=== PATIENT | female | born 1935 | race Caucasian/White ===

== ENCOUNTER 2018-02-19 05:23 | Inpatient (IN) ==
[2018-02-19] MEDS ORDERED: Chlorhexidine Gluconate 2% 1 Pack (2 Cloths) TOPICAL ONE (05:42)
[2018-02-19] MEDS ORDERED: Metoprolol Tartrate 25 MG Tablet PO ONE (05:42)
[2018-02-19] MEDS ORDERED: Sodium Chlor 0.9% Inj 73.07 ML, Ropivacaine 0.5% PF Inj 24.63 ML, Ketorolac Inj 30 MG, ... P-ARTICULR SCH ×5 (05:45)
[2018-02-19] MEDS ORDERED: Sodium Chlor 0.9% Inj 500 ML IV.SIG SCH (06:00)
[2018-02-19] MEDS ORDERED: ceFAZolin 2 GM Premix Inj 2 GM/50 ML PIGGYBACK IV.SIG SCH (06:00)
[2018-02-19] MEDS ORDERED: Tranexamic Acid Inj 790 MG in Sodium Chlor 0.9% Inj 100 ML IV.SIG SCH ×3 (06:00→12:00)
[2018-02-19] MEDS ORDERED: Dexamethasone Inj 20 MG/5 ML Vial IV.PUSH SCH (06:00)
[2018-02-19] MEDS ORDERED: Vancomycin Inj 1,000 MG in Sodium Chlor 0.9% Inj 250 ML IV.SIG SCH (06:00)
[2018-02-19] MEDS ORDERED: Bupivacaine/Dextrose 0.75% Inj 2 ML Ampul ONE (07:43)
[2018-02-19] MEDS ORDERED: Budesonide-Formoterol 160/4.5 MCG 6 GM Inhaler INH PRN (09:59)
[2018-02-19] MEDS ORDERED: Bisacodyl 10 MG Supp RECTAL PRN (10:01)
[2018-02-19] MEDS ORDERED: Aluminum/Magnesium/Simethacone Susp 30 ML UDC PO PRN (10:01)
[2018-02-19] MEDS ORDERED: Morphine Sulfate Inj 2 MG/ML Vial IV.PUSH PRN (10:01)
[2018-02-19] MEDS ORDERED: Post-op Orders (for Pharmacy) OTHER STA (10:01)
--- NOTE | 2018-02-19 10:05 | P.OP ---
- Preoperative Diagnosis (1) Osteoarthritis of left knee - Postoperative Diagnosis (1) Osteoarthritis of left knee Date of procedure: 02/19/18 Procedure: Left total knee arthroplasty Anesthesia: regional, spinal Surgeon: Manas Lieberman MD Pigs Feet Cleaner: ALESHIA Bush The surgical procedure was assisted by my Advanced Registered Nurse Practitioner. My ANIMAL ASSISTANT presence was necessary throughout this case for the manipulation and positioning of the surgical extremity. My ANIMAL ASSISTANT was assisting me throughout the duration of this procedure. The skill set of an Advance Registered Nurse Practitioner was medically necessary to complete this procedure. During the surgical case, the surgical instruments inspector was working at the back table and the Advance Registered Nurse Practitioner was directly assisting me. Operation and Findings: IMPLANTS: DePuy Attune: Patella: size 32. Femur, posterior stabilized size 6 narrow. Tibia, rotating platform size 4. Tibial insert, rotating platform, posterior stabilized size 7 mm thickness. ESTIMATED BLOOD LOSS: 150 cc TOURNIQUET TIME: 33 minutes at 250 mmHg pressure. JUSTIFICATION FOR PROCEDURE: The patient has end-stage osteoarthritis to the knee. There is an attached conservative measures pathway form in the chart that describes the nonoperative measures that were undertaken prior to consideration of surgical management. The patient understood the risks and benefits of surgical management. See my office notes for further details PROCEDURE: The patient was brought back to the operative theatre. Adequate anesthesia was obtained. The patient received intravenous vancomycin and Ancef. The lower extremity was prepped and draped in the usual sterile fashion.The leg was exsanguinated, the tourniquet was raised. A standard anterior incision was performed followed by medial parapatellar arthrotomy was performed. End-stage arthritis was identified. Osteotomy of the patella was performed. We drilled holes for the patella. We trialed the patella component. We placed an intramedullary guide into the distal femur. We ultimately resected 13 mm off of the distal femur in 5 degrees of valgus. The remnants of the ACL and PCL were resected. Osteotomy of the proximal tibia was performed, resecting 6 mm off of the medial side. This was done with 3 degrees of posterior slope using an extramedullary guide. The distal end of the guide was placed in the mid aspect of the ankle. The femur was sized, and four chamfer cuts were completed in 3 of external rotation. We then cut the central box in the distal femur to replace the PCL. We resected the remnants of the menisci and removed osteophytes off of the femur and tibia. We then trialed the knee. We punched the tibia for the keel, and then used standard technique to cement in components. Excess cement was removed. We trialed the knee again and the final polyethylene thickness was chosen to provide extension to 0 degrees, and flexion of 140 degrees to gravity. The ligaments were appropriately balanced. Lateral release was necessary to obtain excellent patellofemoral tracking. The tourniquet was released and adequate hemostasis was obtained. An intra- articular injection of a ropivacaine cocktail was injected. The posterior knee was inspected for excess cement, which was removed. The final polyethylene was put into position after thorough irrigation. We then closed deep fascia with a #2 Stratafix followed by skin with 2-0 Vicryl followed by Dermabond. Postop plan is to weight-bear as tolerated. DVT prophylaxis will be performed with SCDs, SYDNEY petit, early mobilization, and Lovenox followed by aspirin.
[2018-02-19] MEDS: Sod Chloride 0.9% Inj 1,000 ML IV.CONT SCH (10:45)
--- NOTE | 2018-02-19 11:12 | XR ---
EXAM DATE: 02/19/2018 11:09 AM EDT AGE/SEX: 82 years / Female INDICATIONS: Post op left knee surgery. CLINICAL DATA: This is the patient's initial encounter. Patient reports that signs and symptoms have been present for 1 day and indicates a pain score of 0/10. MEDICAL/SURGICAL HISTORY: None. Total knee replacement, right. COMPARISON: [facility] – [place], KNEE RIGHT [facility] (1 OR 2 VWS), 05/16/2016. . FINDINGS: Patient's had a total knee arthroplasty. There is excellent alignment. There is no fracture. CONCLUSION: Total knee arthroplasty without complication. Electronically signed by: Mo Lake MD 02/19/2018 11:10 AM EDT
--- NOTE | 2018-02-19 11:48 | P.DCO ---
- Physical Therapy Physical Therapy: Gait training, Transfer training, bed to chair Knee: Total knee Left Lower Extremity Weight Bearing: Weight bearing as tolerated Left Lower Extremity Range of Motion: Active ROM - Nursing Nursing: Sourav teaching Dressing changes: Do not change dressing Additional instructions: First dressing change in the office. - Certification Need for Home Health services: I have seen patient Belia Bautista on 02/19/18. My clinical findings support the need for the requested home health care services because: Need for Home Health Services: Limited ability to care for self, High risk of falls Homebound Certification: I certify that my clinical findings support that this patient is homebound because: Homebound Certification: Post-op weakness, Unsteady gait/balance
[2018-02-19] MEDS ORDERED: Montelukast 10 MG Tablet PO SCH (18:00)
[2018-02-19] MEDS ORDERED: Zolpidem Tartrate 5 MG Tablet PO PRN (21:00)
[2018-02-19] MEDS: Multivitamin/Minerals Therapeutic Tablet PO SCH (23:24)
[2018-02-19] MEDS: Senna/Docusate Sodium 8.6/50 MG Tablet PO SCH (23:24)
[2018-02-20 00:50] VITALS: RESP 17
[2018-02-20] MEDS: Sod Chloride 0.9% Inj 1,000 ML IV.CONT SCH (03:43)
[2018-02-20 04:40] VITALS: PULSE 72; TEMP 97.6; O2SAT 98
[2018-02-20 04:52] LABS: Hematocrit 34.8 % (35.0-46.0); Hemoglobin 11.2 gm/dL (11.6-15.3)
--- NOTE | 2018-02-20 07:22 | P.PNOP ---
Subjective Interval history: The patient is resting comfortably in bed with no complaints of pain to the left knee. The patient is requesting discharge home with home health. Physical Exam Vital signs: Vital Signs 02/19/18 10:36 02/19/18 10:45 02/19/18 11:00 Temperature 97 F L Pulse Rate 55 L 52 L 51 L Respiratory Rate 19 19 24 Blood Pressure 138/78 138/72 155/75 H Pulse Oximetry 94 L 96 95 02/19/18 11:15 02/19/18 12:00 02/19/18 16:00 Temperature 97 F L 98.2 F 97.2 F L Pulse Rate 53 L 55 L 61 Respiratory Rate 24 18 18 Blood Pressure 152/85 H 197/88 H 154/83 H Pulse Oximetry 94 L 94 L 92 L 02/19/18 19:22 02/19/18 23:24 02/20/18 03:28 Temperature 97.4 F L 97.5 F L 97.6 F Pulse Rate 60 60 72 Respiratory Rate 18 17 17 Blood Pressure 140/70 130/70 130/70 Pulse Oximetry 98 97 98 Intake & Output 02/19/18 02/20/18 02/20/18 18:59 06:59 18:59 Intake Total 1465.8 / 1465.8 1380 / 1380 Output Total 700 / 700 Balance 765.8 / 765.8 1380 / 1380 Weight 79 kg 79 kg Intake: IV 1365.8 / 1365.8 900 / 900 NS Inj 1,000 ML @ 80 mls/hr IV. 800 / 800 CONT .[id number] RAI Rx#:[id number] LR 1000 mL Inj 1,000 ML @ 30 1000 / 1000 mls/hr IV.SIG .Q24H RAI Rx#: [id number] Cyklokapron Inj 790 MG In NS 215.8 / 215.8 Inj 100 ML @ 200 mls/hr IV.SIG HOLE PUNCHER STRAP RAI Rx#:[id number] Ancef 2 GM Premix Inj 2 gm In 50 / 50 50 ml @ 100 mls/hr IV.SIG HOLE PUNCHER STRAP RAI Rx#:[id number] Ancef Inj 1,000 MG In NS Inj 100 / 100 100 / 100 100 ML @ 200 mls/hr IV.SIG Q6H RAI Rx#:[id number] Oral 480 / 480 Anesthesia Amount 100 / 100 Output: Estimated Blood Loss 100 / 100 Urine Amount (Catheter) 600 / 600 Straight 600 / 600 Other: # Voids 3 5 Date of Last Bowel Movement 02/18/18 02/18/18 # Bowel Movements 0 Narrative: The patient's dressing is clean, dry, and intact. EHL/TA/G are intact. 2+ pedal pulse. The patient's calf is soft and nontender. Sensation is intact to light touch distally. - Urinary Catheter Management Straight Cath placed during this visit: yes, but has since been removed by the nurse Reason for continuing: Not indwelling catheter Insertion date: 02/19/18 Insertion time: 13:30 Removal date: 02/19/18 Removal time: 13:40 Results - Labs CBC & Chem 7: 02/20/18 03:52 Laboratory Results - last 24 hr 02/19/18 02/20/18 06:00 03:52 Hgb 11.2 L Hct 34.8 L Blood Type A Positive Blood Type Recheck Required Antibody Screen Negative - Imaging Impressions Knee X-Ray 02/19/18 10:01 CONCLUSION: Total knee arthroplasty without complication. - Procedures Left total knee arthroplasty Assessment and Plan - Problem List (1) Status post total knee replacement, left Code(s): Z96.652 - Presence of left artificial knee joint Status: Acute (2) Osteoarthritis of left knee Code(s): M17.12 - Unilateral primary osteoarthritis, left knee Status: Acute - Assessment and Plan POD #1: Left total knee arthroplasty 2 skin tears to the left lower extremity 1. Weightbearing as tolerated on left lower extremity. 2. Lovenox followed by aspirin for DVT prophylaxis. 3. Ice as needed for swelling. 4. Stable per ortho for discharge to home health today. 5. The patient will follow up with Dr. Lieberman and/or ALESHIA Diaz as previously scheduled.
[2018-02-20 07:56] VITALS: BP 142/80
[2018-02-20] MEDS ORDERED: Dexamethasone Inj 20 MG/5 ML Vial IV.PUSH ONE (08:00)
[2018-02-20] MEDS: Senna/Docusate Sodium 8.6/50 MG Tablet PO SCH (08:03)
[2018-02-20] MEDS: Multivitamin/Minerals Therapeutic Tablet PO SCH (08:03)
[2018-02-20] MEDS ORDERED: glipiZIDE 5 MG Tablet PO SCH (09:00)
[2018-02-20] MEDS ORDERED: predniSONE 5 MG Tablet PO SCH (09:00)
[2018-02-20] MEDS ORDERED: Pantoprazole Sodium 20 MG DR Tablet PO SCH (09:00)
[2018-02-20] MEDS ORDERED: Atenolol 25 MG Tablet PO SCH (09:00)
[2018-02-20] MEDS ORDERED: Enoxaparin Inj 40 MG/0.4 ML Syringe SQ SCH (10:00)
[2018-02-20] MEDS ORDERED: Montelukast 10 MG Tablet PO SCH (21:00)
--- NOTE | 2018-02-23 20:36 | P.DS ---
Date of admission: 02/19/18 05:23 Primary care physician: Itzel Baum Attending physician on discharge: Manas Lieberman Anticipated date of discharge: 02/20/18 Brief History from admission: The patient was admitted to the hospital for severe osteoarthritis of the left knee to have a left total knee arthroplasty. DS: Diagnosis - Discharge Diagnosis (1) Status post total knee replacement, left Status: Acute (2) Osteoarthritis of left knee Status: Acute DS: Summary Hospital Course: The patient was admitted to the hospital for severe osteoarthritis of the left knee to have a left total knee arthroplasty. The patient's surgery went well with no complication. The patient is on a diabetic diet. The patient's DVT prophylaxis includes use of [Lovenox followed by aspirin]. The patient is weightbearing as tolerated. The patient was discharged [home with home health] and will follow up in the office with Dr. Lieberman and/or ALESHIA Diaz as previously scheduled. - Time Spent with Patient Total time spent providing and/or coordinating discharge services: Greater than 30 minutes - Quality: VTE Deep Vein Thrombosis/Pulmonary Embolism Present on Admission: No Exam Narrative: See last progress note for physical examination Results Procedures completed during hospitalization: Left total knee arthroplasty - Impressions ITS Impressions Knee X-Ray 02/19/18 10:01 CONCLUSION: Total knee arthroplasty without complication. Discharge Plan - Discharge Disposition Patient Disposition: W/Home Health Service - Discharge Condition Condition: Stable - Discharge Order Discharge Orders: Discharge Order (Routine); Ordered 02/19/18 Ordered By: Bhupinder Da Silva - Discharge Details Anticipated Discharge Date: 02/20/18 - Physicians Team Primary Care Provider: Itzel Baum Attending Provider: Manas Lieberman Other Providers: Vishnu Mares - Rxs /Orders / Referrals /Forms Prescriptions: Continue ascorbic acid (vitamin C) [Vitamin C] 500 mg Tablet 500 mg PO DAILY atenolol 25 mg Tablet 25 mg PO DAILY atorvastatin 20 mg Tablet 20 mg PO HS biotin 10,000 mcg Capsule 1 cap PO DAILY budesonide-formoterol [Symbicort] 160-4.5 mcg/actuation Hfa Aerosol Inhaler 2 puff INHALATION Q12H PRN (Reason: Shortness Of Breath) cholecalciferol (vitamin D3) [Vitamin D3] 1,000 unit Capsule 1,000 unit PO DAILY cyanocobalamin (vitamin B-12) [Vitamin B-12] 500 mcg Tablet 500 mcg PO DAILY glipizide 2.5 mg Tablet Extended Release 24hr 2.5 mg PO DAILY losartan 25 mg Tablet 12.5 mg PO HS montelukast 10 mg Tablet 10 mg PO HS omeprazole 20 mg Capsule,Delayed Release(Dr/Ec) 20 mg PO DAILY prednisone 2.5 mg Tablet 2.5 mg PO DAILY Discontinued coQ10 (ubiquinol) 100 mg Capsule 200 mg PO DAILY mrhekinbbmlx-usy-mxne-FA-vit K [Adults Multivitamin] 18 mg iron-400 mcg-25 mcg Tablet 1 tab PO DAILY omega 1-lzj-jxm-fish oil [Fish Oil] 1,000 mg (120 mg-180 mg) Capsule 1 cap PO DAILY turmeric root extract 500 mg Capsule 500 mg PO DAILY Ambulatory Orders / Order Sets / DME: Adjustable Commode 3-in-1 (1 each) (Routine) Location: Determined by Patient Ordered By: Bhupinder Da Silva CPM - Continuous Passive Motion Machine (1 each) (Routine) Location: Determined by Patient Ordered By: Bhupinder Da Silva Walker With Front Wheels (1 each) (Routine) Location: Determined by Patient Ordered By: Bhupinder Da Silva Referrals: Manas Lieberman MD [Physician] - See Instructions (The patient will follow-up in the office as previously scheduled with Dr. Lieberman or ALESHIA Diaz) Itzel Baum [Primary Care Provider] - See Instructions - Discharge Instructions Patient Printed Instructions: Knee Replacement (DC)
== END 2018-02-20 11:48 | disposition home health service (06) ==
LOC: HSDI 05:23 → N06 11:45
PROVIDERS: ADMIT Orthopaedic Surgery; ATTEND Orthopaedic Surgery